=== PATIENT | male | born 1945 | race Caucasian/White ===

== ENCOUNTER 2025-09-28 10:28 | Emergency (ER) | payer MEDICARE, OTHER, SELFPAY ==
[2025-09-28] VITALS (7 sets, daily range): BP systolic 118–164; BP diastolic 49–74; BMI 25.8
--- NOTE | 2025-09-28 11:39 | ED.GENMED ---
History of Present Illness
General
Chief Complaint: Heart Rate Problem
Source: patient
Exam Limitations: none
Time Seen by Provider: 09/28/25 10:59
Nursing documentation reviewed up to this point in time: agreed with
History of Present Illness
History of Present Illness:
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 He reports
feeling his heart racing, with a heart rate of approximately 78 beats per minute, which is unusual for him as he typically maintains a heart rate in the 40s to 50s. He fell back asleep, awakened at 6 a.m. and the irregular heartbeat persisted. He
denies any symptoms of chest pain, shortness of breath, nausea, or vomiting, dizziness, lightheadedness.
The patient is currently being monitored using an implanted loop recorder, and he has a history of extra heartbeats and intermittent mild lightheadedness but denies a diagnosis of atrial fibrillation.. The patient's Application Development Specialist is at [facility]
but wants to switch to [facility]. PCP is at [facility].
He recently obtained a new smart watch and is trying to understand its readings related to his heart rate and rhythm.
Past History
Past History
ED Past Medical History: Arrthythmia (Loop recorder for palpitations) and HTN
ED Past Surgical History: Orthopedic
Social History
Tobacco: Non-smoker
Alcohol: None
Personal: Single
Living: alone
Review of Systems
Review of Systems
Allergies reviewed?: Yes
All Other Systems: ROS reviewed and negative except as documented in HPI and ROS
Phy Exam
Physical Exam
Physical Exam:
GENERAL: No acute distress. A&Ox3.
CONSTITUTIONAL: Afebrile.
EYES: clear, conjunctivae normal
ENMT: moist mucus membranes, Pharynx nl
RESPIRATORY: Regular respirations, nonlabored, lungs clear.
CARDIOVASCULAR: Regular rate and rhythm, no murmurs, no rubs.
GI: Soft, nontender, normal BS
MUSCULOSKELETAL: Moves with ease. Well perfused.
SKIN: Warm, dry, pink
PSYCH: Normal mood and affect. Well kept, interactive and appropriate
NEUROLOGIC: Awake, alert and oriented. No focal neurological deficits
Course
Orders/Labs/Results
Orders:
Orders
09/28/25 10:32
EKG [Electrocardiogram (*1)] Urgent
Reason for Study: Atrial Fibrillation
EKG- Treatment ONCE
09/28/25 12:01
Complete Blood Count/With Diff Urgent
Comprehensive Metabolic Panel Urgent
Troponin I Urgent
09/28/25 12:16
Diltiazem HCl [Cardizem] 10 mg IV NOW STA
09/28/25 12:50
CR Chest - 2 Views Urgent
Comment:
Reason For Exam: palpitations
09/28/25 15:18
Troponin I Urgent
Abnormal Lab Results
09/28/25 09/28/25
12:01 15:18
RBC 3.91 L 10^6/uL
(4.70-6.10)
Hgb 11.9 L g/dL
(13.0-18.0)
Hct 35.9 L %
(39.0-52.0)
Absolute Monos (auto) 0.8 H 10^3/uL
(0.1-0.6)
Monocytes % 13.0 H %
(1.7-9.3)
Sodium 133 L mmol/L
(135-145)
Troponin I 0.075 H* ng/ml 0.064 H* ng/ml
09/28/25 12:01
09/28/25 12:01
Vital Signs
Initial and Last Documented VS:
Initial Vital Signs
Temp Pulse Resp BP Pulse Ox
97.8 F 65 16 126/49 100
09/28/25 10:30 09/28/25 10:30 09/28/25 10:30 09/28/25 10:30 09/28/25 10:30
Last Documented Vital Signs
Temp Pulse Resp BP Pulse Ox
97.8 F 58 12 163/66 100
09/28/25 10:30 09/28/25 16:15 09/28/25 16:15 09/28/25 16:02 09/28/25 16:15
Spanish Medical Interpreter consulted with Physician
Spanish Medical Interpreter consulted with physician?: Yes
Name of Physician Consulted: Ahsan
MDM/Problems Addressed
Differential Diagnosis Includes:
Atrial fibrillation, PVCs, sinus arrhythmia, electrolyte imbalance, hyperthyroidism, NM, anxiety
MDM/Problems Addressed:
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 He reports
feeling his heart racing, with a heart rate of approximately 78 beats per minute, which is unusual for him as he typically maintains a heart rate in the 40s to 50s. He fell back asleep, awakened at 6 a.m. and the irregular heartbeat persisted. He
denies any symptoms of chest pain, shortness of breath, nausea, or vomiting, dizziness, lightheadedness.
The patient is currently being monitored using an implanted loop recorder, and he has a history of extra heartbeats and intermittent mild lightheadedness but denies a diagnosis of atrial fibrillation.. The patient's Application Development Specialist is at [facility]
but wants to switch to [facility]. PCP is at [facility].
He recently obtained a new smart watch and is trying to understand its readings related to his heart rate and rhythm.
EKG: Sinus bradycardia w sinus arrhythmia HR 59. States his heart rate is typically in the 50s to 60s.
12:30 PM:
CBC with no clinically significant abnormality
CMP with no clinically significant abnormality
Troponin mildly elevated at 0.075
Patient does admit that he has been under more stress past couple of days with the family visiting from [place], young children, went to [place] yesterday and they did a lot of walking around... May be why his troponin is mildly
elevated, will recheck at 3 hours
Results and plan discussed with patient and son at bedside
4:10 PM:
Troponin number two 0.064, trending down, patient is stable for discharge
Case discussed with Dr. Foreman who agrees
Mildly elevated troponin may be stress related.
Remains in sinus bradycardia, no change during entire stay in his rhythm
*Pulse Oximetry
SaO2: 100
Oxygen Mode of Delivery: Room air
Patient hypoxic: no
*EKG
EKG Intrepretation Date: 09/28/25
Interpretation: abnormal
Heart Rate: 59
Rate: bradycardiac
Rhythm: sinus arrhythmia
[place]: normal axis
Interval: normal interval
QRS Pattern: normal QRS
Ischemia: no ischemia
*Critical Care Note
Total Time (30-74mins, 75-104mins- exclusive of procedures): Not Applicable
ED Attending Note
-
Portions of this chart may have been created with voice recognition software.� Occasional wrong word or��sound alike� substitutions may have occurred due to the inherent limitations of voice recognition software.
Discharge Plan
Departure
Patient Disposition: Home (Routine Discharge)
Date of Disposition: 09/28/25
Time of Disposition: 16:12
Patient with high blood pressure during this ER visit?: No
Condition: Good
Discharge Problem:
Heart palpitations
Instructions: Palpitations (DC)
Referrals:
Tarik Pedro MD [Family Provider, [facility]]
True Catalan MD [Active, Cardiology] - Next open appointment
Activity Restrictions/Additional Instructions:
As we discussed, nothing worrisome in your workup here today.
Interventions
Interventions:
*General Assessment Last Done: 09/28/25 10:30
*Neglect/Abuse Screening Last Done: 09/28/25 10:30
*ED COVID-19 Vaccine History Last Done: 09/28/25 12:04
*ED Influenza Vaccine History Last Done: 09/28/25 12:04
[facility] Fall Risk Assessment Tool Last Done: 09/28/25 12:03
*Risk Screen - Suicide (C-SSRS) Last Done: 09/28/25 10:30
*Nursing Disposition Last Done: 09/28/25 16:35
ED- Cardiac Assessment Last Done: 09/28/25 12:03
ED- Pulmonary Assessment Last Done: 09/28/25 12:03
Discharge Date and Time
Discharge Date/Time: 09/28/25 16:36
Print Language: CITIZEN [place]
[2025-09-28 12:07] LABS: Hematocrit 35.9 % (39.0-52.0); Hemoglobin 11.9 g/dL (13.0-18.0); Mean Corp Hgb Conc. 33.1 g/dL (33.0-37.0); Mean Corpuscular Volume 91.8 fL (80.0-94.0); Nucleated Red Blood Cells % 0 % (-); Platelet Count 201 10^3/uL (130-400); Red Cell Dist. Width 13.6 % (11.5-14.5)
[2025-09-28 12:27] LABS: ALT (SGPT) 26 U/L (0-50); AST (SGOT) 30 U/L (17-59); Albumin 4.2 g/dl (3.5-5.0); Alkaline Phosphatase 47 U/L (38-126); Blood Urea Nitrogen 20 mg/dl (9-20); Calcium 9.1 mg/dl (8.4-10.2); Carbon Dioxide 30 mmol/L (22-30); Chloride 98 mmol/L (98-107); Glucose 70 mg/dl (70-99); Potassium 4.6 mmol/L (3.5-5.1); Sodium 133 mmol/L (135-145); Total Protein 6.5 g/dl (6.3-8.2); eGFR > 60.00
[2025-09-28 12:39] LABS: Troponin I 0.075 ng/ml
[2025-09-28 15:58] LABS: Troponin I 0.064 ng/ml
== END 2025-09-28 16:36 | disposition home or self-care (01) ==
LOC: EMR 10:28
PROVIDERS: Registered Nurse; EMERGENCY PHYSICIAN Emergency Medicine; FAMILY PHYSICIAN Student in an Organized Health Care Education/Training Program
DX: R00.2 Palpitations (principal); I10 Essential (primary) hypertension; Z95.818 Presence of other cardiac implants and grafts; Z86.73 Personal history of transient ischemic attack (TIA), and cerebral infarction without residual deficits
CPT/HCPCS: 99284; 71046; 80053; 84484; 85025; 93005